=== PATIENT | female | born 1985 | race Caucasian/White ===

== ENCOUNTER 2019-01-10 08:39 | Inpatient (IN) ==
--- NOTE | 2019-01-10 07:36 | PROVIDER DOCUMENTATION ---
HPI-General Adult - General Chief Complaint: Flank Pain Stated Complaint: UTI Time Seen by Provider: 01/10/19 07:13 Source: patient Allergies/Adverse Reactions: Patient Allergies Allergy/AdvReac Type Severity Reaction Status Date / Time ketorolac tromethamine * Allergy RASH Verified 02/14/16 20:40 [From Toradol] tramadol Allergy RASH Verified 02/14/16 20:40 - History of Present Illness -Gen Adult Nature of Presenting Problems: Pt complains of R back pain starting early this am. She states urge to urinate but cannot. She states symptoms are identical to previous kidney stones and suspects that she is having another. She states being but does not know how far along and has not had care. She states noticing her abdominal girth expanding, however. No vomiting or fever. Review of Systems - Adult - REVIEW OF SYSTEMS - ADULT Constitutional: reports: no symptoms reported Eyes: reports: no symptoms reported Ears, Nose, Mouth & Throat: reports: no symptoms reported Cardiovascular: reports: no symptoms reported Respiratory: reports: no symptoms reported Gastrointestinal: reports: see HPI Genitourinary: reports: see HPI Musculoskeletal: reports: no symptoms reported Integumentary: reports: no symptoms reported Neurological: reports: no symptoms reported Psychiatric: reports: no symptoms reported Endocrine: reports: no symptoms reported Hematologic/Lymphatic: reports: no symptoms reported Past History - Adult - PAST MEDICAL HISTORY-ADULT Review of Records: reports: Nursing Assessment Review, Medications Reviewed Major Childhood Illnesses: reports: denies history Cardiovascular: reports: denies history Respiratory: reports: denies history Gastrointestinal: reports: denies history Obstetrical/Gynecological: reports: denies history Genitourinary: reports: denies history Musculoskeletal: reports: denies history Neurological: reports: denies history Psychiatric: reports: denies history Endocrine/Immune: reports: denies history Other Conditions: reports: MRSA - PRIOR SURGERIES/PROCEDURES Surgical/Procedure History: reports: cholecystectomy, - IMMUNIZATION STATUS Childhood Immunizations: See Nurse Assessment Flu Vaccine: See Nurse Assessment - FAMILY HISTORY Family History: CAD over 55 yo, HTN, seizures Physical Exam-General - PHYSICAL EXAM-ADULT Initial Vital Signs Reviewed: Yes - CONSTITUTIONAL General Appearance: appears well, alert - EYES Eyes: PERRL/EOMI, pink conjunctivae - HEAD, EARS, NOSE, MOUTH & THROAT HENMT: normocephalic/atraumatic, moist mucous membranes - NECK Neck: non-tender, full range of motion, supple - RESPIRATORY Respiratory: chest non-tender, lungs clear, normal breath sounds - CARDIOVASCULAR Cardiovascular: normal peripheral pulses, regular rate, rhythm, no edema - GASTROINTESTINAL (ABDOMEN) Abdominal Exam: other (palpable fundus above umbilicus.) - LYMPHATIC Lymphatic: no adenopathy - MUSCULOSKELETAL Back Exam: normal inspection, no vertebral tenderness, CVA tenderness (R) Extremity: normal range of motion, non-tender, normal gait - SKIN Integumentary: normal color, normal turgor, warm/dry. negative: diaphoresis, erythema, jaundice - NEUROLOGIC Neurologic: grossly normal - PSYCHIATRIC Psych/Mental Status: normal mood/affect, oriented x 3 Progress - PLAN OF CARE/RESULTS Progress/Plan/Lab Results: Vital Signs - 8 hr 01/10/19 06:24 Temperature 98.2 F Pulse Rate 88 Respiratory Rate 16 Blood Pressure 158/103 O2 Sat by Pulse Oximetry 96 Orders Category Date Time Status US OBS COMPLETE > 14 WKS [US] Stat Exams 01/10/19 07:28 Ordered CBC WITH ELECTRONIC DIFF [HEME] Stat Lab 01/10/19 07:27 Uncollected CMP [COMPREHENSIVE METABOLIC PANEL] [CHEM] Stat Lab 01/10/19 07:27 Uncollected TEST-URINE [PREG] Stat Lab 01/10/19 07:[address] W/POSS RFLX CULT [URINALYSIS] Stat Lab 01/10/19 07:22 Uncollected Stat US shows a fetus at guillermo 37 weeks gest with head down. I performed bedside FHT with doppler and found them at 128-130. HR drops to 114 per US tech. Pt immediately sent to OB. I discussed her care with Dr Silva who assumed care of her. Result Diagrams: 01/10/19 07:38 01/10/19 07:38 Departure - Departure Date of Disposition Decision: 01/10/19 Time of Disposition Decision: 08:15 DIAGNOSIS: Qualifiers: Weeks of gestation: 37 weeks Qualified Code(s): Z3A.37 - 37 weeks gestation of Disposition: ADMITTED INPATIENT 09 Certified Medical Emergency: Emergent Condition: Fair - Critical Care Note This patient required my direct & personal management of CC.: No Attestation - Physician/ GUILLERMO Attestation The physician spent face to face time with patient:: Yes Advanced Practice Provider documentation review:: Supervising physician onsite and consulted in the evaluation and care of this patient. The physician did have a face to face encounter with the patient.
[2019-01-10 08:09] LABS: AGAP 16; ALBUMIN 3.8 g/dL (3.5-5.0); ALKALINE PHOSPHATASE 246 U/L (32-104); BUN 8 mg/dL (8-22); CALCIUM 9.3 mg/dL (8.8-10.2); CHLORIDE 101 mmol/L (98-107); COSMO 274; CREATININE 0.5 mg/dL (0.5-0.9); ESTIMATED GFR > 60; GLUCOSE 131 mg/dL (70-104); GOT 8 U/L (10-30); GPT 8 U/L (10-36); POTASSIUM 3.6 mmol/L (3.5-5.1); SODIUM 137 mmol/L (136-145); TCO2 20 mmol/L (25-35); TOTAL PROTEIN 7.2 g/dL (6.3-8.3)
[2019-01-10 08:12] LABS: BASO# 0.03 X1000 (0.0-0.2); BASO% 0.1 % (0.0-0.8); EOS# 0.05 X1000 (0.0-0.7); EOS% 0.2 % (0.0-10.0); HEMOGLOBIN 13.1 g/dL (12.0-16.0); IMM GRAN% 0.4 % (0.0-0.5); LYMPH# 1.68 X1000 (1.2-3.4); LYMPH% 7.4 % (20.5-51.1); MCHC 34.5 g/dL (33-37); MONO# 1.11 X1000 (0.11-0.59); MONO% 4.9 % (1.7-9.3); MPV 11.1 FL (7.4-10.4); NEUT# 19.64 X1000 (1.4-6.5); PLT 275 X1000 (130-400); RBC 4.22 XMIL (4.2-5.4); RDW 13.6 % (11.5-14.5); WBC 22.61 X1000 (4.8-10.8)
--- NOTE | 2019-01-10 08:20 | Diag Imaging Result Doc PS360 ---
EXAM: US OBS COMPLETE > 14 WKS HISTORY: preg, unknown edc. back pain. prenatalal care. TECHNIQUE: OB ultrasound COMPARISON: None. FINDINGS: There is a late term intrauterine with an estimated gestational age based on multiple measurements of 36 weeks five days +/- 16 days corresponding with a date of delivery of 02/02/2019. heart rate is 124 bpm. Fetus is in cephalic presentation. No definite abnormality identified. The placenta is anterior and fundal. IMPRESSION: Late term intrauterine . Electronically signed by Maykel Rios 01/10/2019 8:17 AM
[2019-01-10] MEDS ORDERED: PITOCIN 30 UNITS/NS 30 UNIT/500 ML IV.SOLN ONE (08:41)
[2019-01-10] MEDS ORDERED: XYLOCAINE-MPF 1% INJ ONE ×2 (08:47→09:17)
[2019-01-10] MEDS ORDERED: PEPCID PO PRN (08:50)
[2019-01-10] MEDS ORDERED: REGLAN PO ONE (08:50)
[2019-01-10] MEDS ORDERED: STADOL IV PRN (08:50)
[2019-01-10] MEDS ORDERED: KEFZOL 1 GM/D5W 1 GM/50 ML IVPB IV PRN (08:50)
[2019-01-10] MEDS ORDERED: LR 500 ML IV ONE (08:50)
[2019-01-10] MEDS ORDERED: PEPCID IV PRN (08:50)
[2019-01-10] MEDS ORDERED: PEPCID PO ONE (08:50)
[2019-01-10] MEDS ORDERED: ZOFRAN IV PRN (08:50)
[2019-01-10] MEDS ORDERED: PITOCIN 30 UNITS/NS 30 UNIT/500 ML IV.SOLN IV SCH ×2 (09:00)
--- NOTE | 2019-01-10 09:42 | H&P REVIEW ---
H&P Update Document any changes: 33 yo WF at approx 36.5 by U/s done today. NPC. Pt came into ER with c/o Flank paina nd thought she had kidney stones. Pt states she thought she may be preg. U/s done in ER and pt sent to L&D. Pt c/o ctxs q 5 mins. Pt does not know when she ROM. Slight vb. PMH - None. PSH - csection x 2. POHX - 2 csections for Preeclamsia - No care this preg. Pgyn - No STD. Allergies Toradol, tramadol - can take ibuprofen. SH - pos smoker, no drugs or alcohol. FH - NC. BP 138/80 AF. Gen - pt in no apparent distress A&O x 3. Chest - CTA B. Cardio - RRR. ABD - gravid, soft. Extrem - No CCE. FHT - Cat 1. CTX - q 5 mins. CVX - C/C/+2,3. A/p. IUP at 36.5 by U/s done today. No care. Ob labs drawn. Rh neg - nursery aware. C/s x 2 - Pt was pushing when I entered room. D/w pt stat csection and uterine rupture. Will proceed with delivery. No time for GBS proph and ? prolonge rupture. H/o Preeclampsia x 2 - No signs or symtpoms today. BP's 130/80's. No SOUTH, changes in vision or RUQ pain.
[2019-01-10 09:52] LABS: UR AMPHETAMINES QUAL NONE DETECTED (NONE DETECT); UR BARBITUATES QUAL NONE DETECTED (NONE DETECT); UR BENZODIAZEPIN QUAL NONE DETECTED (NONE DETECT); UR CANNABINOIDS QUAL NONE DETECTED (NONE DETECT); UR COCAINE QUAL NONE DETECTED (NONE DETECT); UR METHADONE QUAL NONE DETECTED (NONE DETECT); UR METHAMPHETAMINE QUAL NONE DETECTED (NONE DETECT); UR OPIATES QUAL NONE DETECTED (NONE DETECT); UR OXYCODONE QUAL NONE DETECTED (NONE DETECT); UR PCP QUAL NONE DETECTED (NONE DETECT); UR PROPOXYPHENE QUAL NONE DETECTED (NONE DETECT); UR TCA QUAL NONE DETECTED (NONE DETECT)
[2019-01-10 10:23] LABS: RAPID HIV PRESUMPTIVE NEGATIVE
[2019-01-10 10:28] LABS: RPR NON-REACTIVE (NONREACTIVE)
[2019-01-10] MEDS ORDERED: PITOCIN IM PRN (10:55)
[2019-01-10] MEDS ORDERED: BENADRYL PO PRN (10:55)
[2019-01-10] MEDS ORDERED: MINERAL OIL PO PRN (10:55)
[2019-01-10] MEDS ORDERED: PERI MEDS (DERMOPLAST/NUPERCAINAL/TUCKS) MISC PRN (10:55)
[2019-01-10] MEDS ORDERED: M-M-R II VACCINE SUBQ ONE (10:55)
[2019-01-10] MEDS ORDERED: BOOSTRIX VACCINE IM ONE (10:55)
[2019-01-10] MEDS ORDERED: XYLOCAINE-MPF 1% INJ PRN (10:55)
[2019-01-10] MEDS ORDERED: AMBIEN PO PRN (10:55)
[2019-01-10] MEDS ORDERED: BENADRYL IV PRN (10:55)
[2019-01-10] MEDS ORDERED: HYDROXYZINE IM PRN (10:55)
[2019-01-10] MEDS ORDERED: CYTOTEC PO PRN (10:55)
[2019-01-10] MEDS ORDERED: ATARAX PO PRN (10:55)
[2019-01-10] MEDS: MOTRIN PO PRN ×2 (11:23→19:11)
[2019-01-10 16:19] LABS: HEPATITIS B SURFACE ANTIGEN SEE COMMENTS
[2019-01-10 16:33] LABS: BILIRUBIN URINE NEGATIVE (NEGATIVE); BLOOD URINE 4+ (NEGATIVE); COLOR RED; GLUCOSE URINE NEGATIVE (NEGATIVE); KETONE URINE 3+(Large) mg/dL (NEGATIVE); LEUKOCYTES URINE 1+ (NEGATIVE); NITRITE URINE NEGATIVE (NEGATIVE); PH URINE 6.5; PROTEIN URINE 1+(30 mg/dL) mg/dL (NEGATIVE); UROBILINOGEN URINE 1 mg/dL
[2019-01-10 16:34] LABS: CLARITY CLOUDY (CLEAR); URINE BACTERIA NEGATIVE /HFP; URINE EPITHELIAL CELLS <10 /HPF (<10); URINE SOURCE CLEAN CATCH; URINE WBC <10 /HPF (<10)
[2019-01-10 16:35] LABS: URINE RBC TNTC /HPF (<10)
--- NOTE | 2019-01-10 17:50 | OPERATIVE NOTE ---
PROCEDURE DATE: 01/10/2019 DELIVERY SUMMARY: The patient is a 33-year-old white female, G3, P3, with no care, approximately 34 weeks by ultrasound done in the emergency room, x2, come in complete, complete, +2. Delivered male vaginally. Unmedicated. Apgars 8 and 9. Weight 7 pounds, in cephalic position. Had a first-degree episiotomy with second-degree extension, repaired with 3-0 Vicryl. Three-vessel cord. Placenta delivered intact. Rupture of membrane unknown. Patient is Rh negative. The patient did not receive RhoGAM during period due to no care. [facility]
[2019-01-10 18:22] LABS: HIV ANTIBODY SCREEN SEE COMMENTS
[2019-01-10] MEDS: PERICOLACE PO SCH (21:35)
[2019-01-10] MEDS: TYLENOL PO PRN (21:41)
[2019-01-11] MEDS: MOTRIN PO PRN ×3 (03:18→20:47)
--- NOTE | 2019-01-11 07:50 | OB/GYN PROGRESS NOTE ---
Progress Note OB - . Patient Problems: Current Active Problems Problem Status Onset (vaginal after ) Acute Rh negative state in antepartum period Acute History of 2 sections Acute OB Progress Note: Vital Signs - 24 hr 01/10/19 08:00 01/10/19 16:00 01/10/19 20:00 Temperature 96.0 F L 97 F L 98.1 F Pulse Rate 81 73 63 Respiratory Rate 18 16 18 Blood Pressure 133/96 136/85 146/83 O2 Sat by Pulse Oximetry 100 98 99 01/10/19 22:47 01/11/19 00:00 01/11/19 04:27 Temperature 97.6 F 97.8 F 97.8 F Pulse Rate 63 62 61 Respiratory Rate 18 18 18 Blood Pressure 146/83 135/75 141/76 O2 Sat by Pulse Oximetry 98 100 100 Bedside Urine ED: Urine Bedside Start: 01/10/19 07:42 Freq: Status: Complete Protocol: Activity Type Activity Date Activity User E-Sign Co-Sign Detail Recorded Client Recorded Date Recorded By Document 01/10/19 07:42 [id number] 01/10/19 07:42 [id number] Edit Status 01/10/19 14:53 [id number] Active=>Complete [id number] 01/10/19 14:53 [id number] 01/10/19 07:42 Point of Care [Bedside Point of Care] -Lot # [id number] - Results Positive -Control Line Visible? Yes Laboratory Results - last 24 hr 01/10/19 01/10/19 01/10/19 07:38 07:38 08:08 WBC 22.61 H RBC 4.22 Hgb 13.1 Hct 38.0 MCV 90.0 MCH 31.0 MCHC 34.5 RDW Std Deviation 13.6 Plt Count 275 MPV 11.1 H Immature Gran % (Auto) 0.4 Neut % (Auto) 87.0 H Lymph % (Auto) 7.4 L Millard % (Auto) 4.9 Eos % (Auto) 0.2 Baso % (Auto) 0.1 Immature Gran # (Auto) 0.10 H Neut # (Auto) 19.64 H Lymph # (Auto) 1.68 Millard # (Auto) 1.11 H Eos # (Auto) 0.05 Baso # (Auto) 0.03 Sodium 137 Potassium 3.6 Chloride 101 Carbon Dioxide 20 L Anion Gap 16 BUN 8 Creatinine 0.5 Estimated GFR/1.73 m2 > 60 BUN/Creatinine Ratio 16 Glucose 131 H Calculated Osmolality 274 Calcium 9.3 Total Bilirubin 0.40 AST 8 L ALT 8 L Alkaline Phosphatase 246 H Total Protein 7.2 Albumin 3.8 Globulin 3.0 Albumin/Globulin Ratio 1.0 Urine Source Urine Color Urine Clarity Urine pH Ur Specific Motley Urine Protein Urine Ketones Urine Blood Urine Nitrite Urine Bilirubin Urine Urobilinogen Urine Microscopic RBC Urine WBC Urine Microscopic WBC Ur Epithelial Cells Urine Bacteria Urine Glucose Urine Test POSITIVE Urine Opiates Screen Ur Oxycodone Screen Urine Methadone Screen U Propoxyphene Qual Ur Barbituates Screen Ur Tricyclics Screen Ur Phencyclidine Scrn Ur Amphetamines Screen U Methamphetamines Scrn U Benzodiazepines Scrn Urine Cocaine Screen U Cannabinoids Screen RPR Hep Bs Antigen HIV 1&2 Antibody Screen HIV 1&2 Antibody Rapid Blood Type ABO/Rh Antibody Screen Screen RhIG Candidate? 01/10/19 01/10/19 01/10/19 08:08 09:45 09:45 WBC RBC Hgb Hct MCV MCH MCHC RDW Std Deviation Plt Count MPV Immature Gran % (Auto) Neut % (Auto) Lymph % (Auto) Millard % (Auto) Eos % (Auto) Baso % (Auto) Immature Gran # (Auto) Neut # (Auto) Lymph # (Auto) Millard # (Auto) Eos # (Auto) Baso # (Auto) Sodium Potassium Chloride Carbon Dioxide Anion Gap BUN Creatinine Estimated GFR/1.73 m2 BUN/Creatinine Ratio Glucose 144 H Calculated Osmolality Calcium Total Bilirubin AST ALT Alkaline Phosphatase Total Protein Albumin Globulin Albumin/Globulin Ratio Urine Source Urine Color Urine Clarity Urine pH Ur Specific Motley Urine Protein Urine Ketones Urine Blood Urine Nitrite Urine Bilirubin Urine Urobilinogen Urine Microscopic RBC Urine WBC Urine Microscopic WBC Ur Epithelial Cells Urine Bacteria Urine Glucose Urine Test Urine Opiates Screen NONE DETECTED Ur Oxycodone Screen NONE DETECTED Urine Methadone Screen NONE DETECTED U Propoxyphene Qual NONE DETECTED Ur Barbituates Screen NONE DETECTED Ur Tricyclics Screen NONE DETECTED Ur Phencyclidine Scrn NONE DETECTED Ur Amphetamines Screen NONE DETECTED U Methamphetamines Scrn NONE DETECTED U Benzodiazepines Scrn NONE DETECTED Urine Cocaine Screen NONE DETECTED U Cannabinoids Screen NONE DETECTED RPR NON-REACTIVE Hep Bs Antigen HIV 1&2 Antibody Screen HIV 1&2 Antibody Rapid Blood Type ABO/Rh Antibody Screen Screen RhIG Candidate? 01/10/19 01/10/19 01/10/19 09:45 09:45 09:45 WBC RBC Hgb Hct MCV MCH MCHC RDW Std Deviation Plt Count MPV Immature Gran % (Auto) Neut % (Auto) Lymph % (Auto) Millard % (Auto) Eos % (Auto) Baso % (Auto) Immature Gran # (Auto) Neut # (Auto) Lymph # (Auto) Millard # (Auto) Eos # (Auto) Baso # (Auto) Sodium Potassium Chloride Carbon Dioxide Anion Gap BUN Creatinine Estimated GFR/1.73 m2 BUN/Creatinine Ratio Glucose Calculated Osmolality Calcium Total Bilirubin AST ALT Alkaline Phosphatase Total Protein Albumin Globulin Albumin/Globulin Ratio Urine Source Urine Color Urine Clarity Urine pH Ur Specific Motley Urine Protein Urine Ketones Urine Blood Urine Nitrite Urine Bilirubin Urine Urobilinogen Urine Microscopic RBC Urine WBC Urine Microscopic WBC Ur Epithelial Cells Urine Bacteria Urine Glucose Urine Test Urine Opiates Screen Ur Oxycodone Screen Urine Methadone Screen U Propoxyphene Qual Ur Barbituates Screen Ur Tricyclics Screen Ur Phencyclidine Scrn Ur Amphetamines Screen U Methamphetamines Scrn U Benzodiazepines Scrn Urine Cocaine Screen U Cannabinoids Screen RPR NON-REACTIVE Hep Bs Antigen SEE COMMENTS HIV 1&2 Antibody Screen HIV 1&2 Antibody Rapid PRESUMPTIVE NEGATIVE Blood Type O NEGATIVE ABO/Rh Antibody Screen NEGATIVE Screen RhIG Candidate? 01/10/19 01/10/19 01/10/19 09:45 10:28 14:00 WBC RBC Hgb Hct MCV MCH MCHC RDW Std Deviation Plt Count MPV Immature Gran % (Auto) Neut % (Auto) Lymph % (Auto) Millard % (Auto) Eos % (Auto) Baso % (Auto) Immature Gran # (Auto) Neut # (Auto) Lymph # (Auto) Millard # (Auto) Eos # (Auto) Baso # (Auto) Sodium Potassium Chloride Carbon Dioxide Anion Gap BUN Creatinine Estimated GFR/1.73 m2 BUN/Creatinine Ratio Glucose Calculated Osmolality Calcium Total Bilirubin AST ALT Alkaline Phosphatase Total Protein Albumin Globulin Albumin/Globulin Ratio Urine Source CLEAN CATCH Urine Color RED Urine Clarity CLOUDY A Urine pH 6.5 Ur Specific Motley 1.020 Urine Protein 1+(30 mg/dL) A Urine Ketones 3+(Large) A Urine Blood 4+ Urine Nitrite NEGATIVE Urine Bilirubin NEGATIVE Urine Urobilinogen 1 Urine Microscopic RBC TNTC A Urine WBC 1+ A Urine Microscopic WBC <10 Ur Epithelial Cells <10 Urine Bacteria NEGATIVE Urine Glucose NEGATIVE Urine Test Urine Opiates Screen Ur Oxycodone Screen Urine Methadone Screen U Propoxyphene Qual Ur Barbituates Screen Ur Tricyclics Screen Ur Phencyclidine Scrn Ur Amphetamines Screen U Methamphetamines Scrn U Benzodiazepines Scrn Urine Cocaine Screen U Cannabinoids Screen RPR Hep Bs Antigen HIV 1&2 Antibody Screen SEE COMMENTS HIV 1&2 Antibody Rapid Blood Type ABO/Rh O NEGATIVE Antibody Screen Screen NEGATIVE RhIG Candidate? YES 33 yo PPD#1 s/p at approx 36 weeks, no PNC, Hx C/S x2, Rh neg, Hx PreE with previous pregnancies Patient seen and examined. No complaints this AM. She has normal lochia. She is ambulating and voiding without difficulty. She is tolerating a regular diet and denies nausea/vomiting. Baby was a boy and is in the nursery. Discussed post- contraception and she ultimately desires a BTL. She plans to do depo- provera in the interim. She is bottle-feeding. BP 130-140/70s, no signs/symptoms of PreE. Physical Exam-General - PHYSICAL EXAM-ADULT Initial Vital Signs Reviewed: Yes - CONSTITUTIONAL General Appearance: appears well, alert, no apparent distress - EYES Eyes: PERRL/EOMI - HEAD, EARS, NOSE, MOUTH & THROAT HENMT: normocephalic/atraumatic - CARDIOVASCULAR Cardiovascular: regular rate, rhythm - GASTROINTESTINAL (ABDOMEN) Abdominal Exam: normal bowel sounds, non tender, soft, other (fundus firm, below umbilicus.) - MUSCULOSKELETAL Extremity: normal range of motion, non-tender - PSYCHIATRIC Psych/Mental Status: normal mood/affect Assessment/Plan - Assessment/Plan Assessment: 33 yo PPD#1 s/p at approx 36 weeks, no PNC, Hx c/s x2, Rh neg, Hx PreE with previous pregnancies 1. HD stable, H/H pending this AM 2. Routine PP care 3. Rhogam prior to discharge 4. Rubella status pending 5. SS consult due to no PNC 6. Depo-provera prior to discharge for pp contraception 7. Monitor BPs, symptoms of PreE
[2019-01-11 08:15] LABS: BASO# 0.03 X1000 (0.0-0.2); BASO% 0.2 % (0.0-0.8); EOS# 0.16 X1000 (0.0-0.7); EOS% 1.3 % (0.0-10.0); HEMATOCRIT 35.6 % (37.0-47.0); HEMOGLOBIN 11.5 g/dL (12.0-16.0); IMM GRAN# 0.07 X1000 (0.0-0.04); IMM GRAN% 0.6 % (0.0-0.5); LYMPH# 2.33 X1000 (1.2-3.4); LYMPH% 18.4 % (20.5-51.1); MCH 29.6 PG (27-31); MCHC 32.3 g/dL (33-37); MCV 91.5 FL (81-99); MONO# 0.81 X1000 (0.11-0.59); MONO% 6.4 % (1.7-9.3); MPV 11.1 FL (7.4-10.4); NEUT# 9.25 X1000 (1.4-6.5); NEUT% 73.1 % (42.2-75.2); PLT 235 X1000 (130-400); RBC 3.89 XMIL (4.2-5.4); RDW 13.5 % (11.5-14.5); WBC 12.65 X1000 (4.8-10.8)
[2019-01-11 14:43] LABS: RUBELLA SCREEN NON IMMUNE (IMMUNE)
[2019-01-11] MEDS: TYLENOL PO PRN (16:13)
[2019-01-11] MEDS: PITOCIN 30 UNITS/NS 30 UNIT/500 ML IV.SOLN IV SCH ×6 (20:21→20:28)
[2019-01-11] MEDS: LR 1,000 ML IV SCH ×3 (20:24→20:29)
[2019-01-11] MEDS: PERICOLACE PO SCH (20:46)
[2019-01-12] MEDS: MOTRIN PO PRN (03:54)
[2019-01-12] MEDS: TYLENOL PO PRN (08:42)
[2019-01-12] MEDS ORDERED: DEPO-PROVERA IM ONE (08:59)
--- NOTE | 2019-01-12 09:14 | OB/GYN PROGRESS NOTE ---
- Subjective Pt seen and examined. Pt is s/p . Currently w/o complaints. Ambulating and urinating w/o difficulty. Tolerating regular diet. Denies N/V. +bottle feeding, decreased lochia. OB Physical Exam Vital Signs - 8 hr 01/12/19 08:00 Temperature 98.0 F Pulse Rate 67 Respiratory Rate 20 Blood Pressure 150/94 O2 Sat by Pulse Oximetry 100 - CONSTITUTIONAL General Appearance: appears well, alert, no apparent distress - RESPIRATORY Respiratory: chest non-tender, lungs clear, normal breath sounds - CARDIOVASCULAR Cardiovascular: regular rate, rhythm - GASTROINTESTINAL (ABDOMEN) Abdominal Exam: normal bowel sounds, non tender (FF below umbilicus), soft - GENITOURINARY Female Genitalia/Pelvic Exam: external exam normal (decreased lochia). negativ e: tender uterus - MUSCULOSKELETAL Extremity: non-tender. negative: calf tenderness - PSYCHIATRIC Psych/Mental Status: oriented x 3 Active Medications Generic Name Dose Route Start Last Admin Trade Name Freq PRN Reason Stop Dose Admin Acetaminophen 650 mg 01/10/19 08:50 01/12/19 08:42 Tylenol PO 650 mg Q4-6H PRN PRN Administration Headache Benzocaine 1 each 01/10/19 10:55 Audra Meds (Dermoplast/Nupercainal/Tucks) MISC 3-4XDAY PRN PRN episiotomy/hemorrhoids Diphenhydramine HCl 25 mg 01/10/19 10:55 Benadryl PO Q4H PRN PRN Itching Famotidine 40 mg 01/10/19 08:50 01/10/19 21:41 Pepcid PO 40 mg Q12H PRN PRN Administration GI upset or indigestion Ibuprofen 800 mg 01/10/19 10:55 01/12/19 03:54 Motrin PO 800 mg Q8H PRN PRN Administration cramping Medroxyprogesterone Acetate 150 mg 01/12/19 08:59 Depo-Provera IM 01/12/19 09:00 NOW ONE Mineral Oil 30 ml 01/10/19 10:55 Mineral Oil PO PRN PRN Perineal massage Misoprostol 800 microgm 01/10/19 10:55 Cytotec PO PRN PRN Severe bleeding Oxytocin 20 unit 01/10/19 10:55 Pitocin IM PRN PRN Severe bleeding Senna/Docusate Sodium 1 each 01/10/19 21:00 01/11/19 20:46 Pericolace PO 1 each QHS TRAY Administration Bedside Urine ED: Urine Bedside Start: 01/10/19 07:42 Freq: Status: Complete Protocol: Activity Type Activity Date Activity User E-Sign Co-Sign Detail Recorded Client Recorded Date Recorded By Document 01/10/19 07:42 [id number] 01/10/19 07:42 [id number] Edit Status 01/10/19 14:53 [id number] Active=>Complete [id number] 01/10/19 14:53 [id number] 01/10/19 07:42 Point of Care [Bedside Point of Care] -Lot # [id number] - Results Positive -Control Line Visible? Yes Laboratory Results - last 24 hr 01/10/19 09:45 Rubella Immunity Screen NON IMMUNE H Microbiology 01/10/19 16:35 Urine Culture - Preliminary Urine,Clean Catch NO GROWTH - Assessment & Plan (1) Gestational HTN Status: Acute (2) (vaginal after ) Status: Acute (3) Rh negative state in antepartum period Status: Acute - Progress Note Disposition: 33 yo PPD#2 s/p at approx 36 weeks, no PNC, Hx c/s x2, Rh neg, Hx PreE with previous pregnancies 1. HD stable 2. Routine PP care 3. s/p Rhogam 4. Rubella non-immune, need MMR 5. SS consult due to no PNC 6. Depo-provera prior to discharge for pp contraception 7. f/u in office in 2 weeks for sterilization pre-op appt. Medicaid form signed today 8. h/o PreE, BP mildly elevated. Will start Procardia 30 XL daily. Con't to monitor for si/sy of Pre-eclampsia 9. plan for d/c home today
[2019-01-12] MEDS ORDERED: ADALAT CC PO SCH (09:30)
[2019-01-12 15:19] VITALS: BP 147/77
== END 2019-01-12 16:55 | disposition home or self-care (01) | DRG 807 ==
LOC: P.LD 08:39 → P.MEDSURG 01-11 18:01
PROVIDERS: ADMIT Obstetrics & Gynecology; ATTEND Obstetrics & Gynecology